=== PATIENT | male | born 1985 ===

== ENCOUNTER 2016-06-16 07:16 | Emergency (ER) | payer OTHER ==
[2016-06-16 07:16] VITALS: BMI 17.9
[2016-06-16 07:22] VITALS: O2SAT 96
--- NOTE | 2016-06-16 08:40 | C.PDOC ---
History Of Present Illness 31 y/o male pmhx seizures of unknown etiology presents to the ED with complains of seizure last night at home. Pt with multiple visits to ED for same, prior dialantin levels low although patient states is compliant with medication. Prior visits also positive for cocaine and marijuana use although patient denies drug use. Denies headache, nausea, vomiting, fever, chills or any other complaints. Time Seen by Provider: 06/16/16 08:14 Chief Complaint (Nursing): Seizure History Per: Patient History/Exam Limitations: no limitations Recent Seizure Activity Began: Hours Ago: Length Of Seizures (Duration): Unknown Severity: Mild Recent travel outside of the [place]: No Past Medical History Reviewed: Historical Data, Nursing Documentation, Vital Signs Vital Signs: Last Vital Signs Temp 98.6 F 06/16/16 10:23 Pulse 90 06/16/16 10:23 Resp 14 06/16/16 10:23 BP 110/59 L 06/16/16 10:23 Pulse Ox 96 06/16/16 10:23 - Medical History PMH: Asthma, Depression, Kidney Stones, Chronic Kidney Disease, Seizures - [facility] Procedures TETANUS TOXOID ADMINIST (11/24/12) Family History: States: Unknown Family Hx - Social History Hx Tobacco Use: Yes Hx Alcohol Use: No Hx Substance Use: No - Immunization History Hx Tetanus Toxoid Vaccination: Yes (11/24/2012) Hx Influenza Vaccination: Yes Hx Pneumococcal Vaccination: No Review Of Systems Constitutional: Negative for: Fever, Chills Gastrointestinal: Negative for: Nausea, Vomiting Neurological: Positive for: Seizures. Negative for: Headache Physical Exam - Physical Exam Appears: Non-toxic, No Acute Distress Skin: Warm, Dry, No Rash, Other (flushed) Head: Atraumatic, Normacephalic Eye(s): bilateral: PERRL, EOMI Tongue: Normal Appearing, No Bite Neck: Normal, Normal ROM, Supple Chest: Symmetrical Cardiovascular: Rhythm Regular, No Murmur Respiratory: Normal Breath Sounds, No Rales, No Rhonchi, No Wheezing Gastrointestinal/Abdominal: Normal Exam, Soft, No Tenderness Extremity: Normal ROM, Other (No signs of trauma) Extremity: Bilateral: Atraumatic Neurological/Psych: Oriented x3, Normal Speech, Normal Cognition, Normal Motor, Normal Sensation ED Course And Treatment - Laboratory Results Result Diagrams: 06/16/16 08:47 06/16/16 08:47 O2 Sat by Pulse Oximetry: 96 (room air) Pulse Ox Interpretation: Normal Medical Decision Making Medical Decision Making: Plan: UA, BGL, IV fluids, labs, dilantin level Disposition Counseled Patient/Family Regarding: Studies Performed, Diagnosis, Need For Followup, Rx Given - Disposition Referrals: [facility] [Outside] Disposition: HOME/ ROUTINE Disposition Time: 11:03 Condition: IMPROVED Additional Instructions: Take your medication as indicated. Each visit to the Emergency Department you have had a low Dilantin level. This means you are not taking your medication. Follow up in the clinic or with your own doctor. Prescriptions: Phenytoin, Extended [Dilantin Kapseals] 300 mg PO DAILY #60 cer Instructions: Recurrent Seizures in Adults (ED) Forms: General Discharge Instructions - POA Present On Arrival: None - Clinical Impression Clinical Impression: Generalized-onset seizures - Scribe Statement The provider has reviewed the documentation as recorded by the Sai Priest Provider Attestation: All medical record entries made by the Sai were at my direction and personally dictated by me. I have reviewed the chart and agree that the record accurately reflects my personal performance of the history, physical exam, medical decision making, and the department course for this patient. I have also personally directed, reviewed, and agree with the discharge instructions and disposition.
[2016-06-16 08:52] LABS: BASO # 0.1 K/uL (0.0-0.2); BASO % 0.6 % (0.0-2.0); EOS # 0.1 K/uL (0.0-0.7); EOS % 0.8 % (0.0-4.0); HEMATOCRIT 47.8 % (35.0-51.0); LYMPH # 3.6 K/uL (1.0-4.3); LYMPH % 28.8 % (20.0-40.0); MEAN CORPUSCULAR HEMOGLOBIN 27.6 pg (27.0-31.0); MEAN CORPUSCULAR HGB CONC 31.7 g/dL (33.0-37.0); MEAN PLATELET VOLUME 8.3 fL (7.2-11.7); MONO # 0.9 K/uL (0.0-0.8); MONO % 7.4 % (0.0-10.0); NRBC % 0.1 % (0.0-2.0); RED CELL DISTRIBUTION WIDTH 13.6 % (11.5-14.5); WHITE BLOOD COUNT 12.6 K/uL (4.8-10.8)
[2016-06-16 08:55] LABS: MEAN CELL VOLUME 87.2 fL (80.0-94.0)
[2016-06-16 09:02] LABS: CHLORIDE 100 mmol/L (98-107); POTASSIUM 3.8 mmol/L (3.6-5.2); SODIUM 138 mmol/L (132-148)
[2016-06-16 09:04] LABS: ALB/GLOB RATIO 1.3 (1.0-2.1); ALKALINE PHOSPHATASE 108 U/L (38-126); AST/SGOT 33 U/L (17-59); BILIRUBIN,TOTAL 0.5 mg/dL (0.2-1.3); CARBON DIOXIDE 14 mmol/L (22-30); GFR AFRICAN-AMERICAN > 60; TOTAL PROTEIN 8.5 g/dL (6.3-8.3)
[2016-06-16 09:05] LABS: ALCOHOL SERUM < 10 mg/dl (0-10); ALT/SGPT 16 U/L (21-72); BLOOD UREA NITROGEN 17 mg/dL (9-20); GLUCOSE,RANDOM 102 mg/dL (75-110)
[2016-06-16 09:07] LABS: RBC URINE 1 /hpf (0-3); URINE BILIRUBIN NEGATIVE (NEGATIVE); URINE BLOOD 1+ (NEGATIVE); URINE COLOR Yellow (YELLOW); URINE GLUCOSE (UA) NORMAL (Normal); URINE KETONE NEGATIVE (NEGATIVE); URINE LEUKOCYTE ESTERASE NEG Leu/uL (Negative); URINE PROTEIN 1+ mg/dL (NEGATIVE); URINE UROBILINOGEN NORMAL mg/dL (0.2-1.0); WBC URINE 1 /hpf (0-5)
[2016-06-16 10:26] VITALS: BP 110/59; PULSE 90; RESP 14; TEMP 98.6
== END 2016-06-16 11:23 | disposition home or self-care (01) ==
LOC: C.ER 07:16
DX: G40.409 Other generalized epilepsy and epileptic syndromes, not intractable, without status epilepticus (principal)

== ENCOUNTER 2016-07-19 04:15 | Emergency (ER) | payer OTHER ==
[2016-07-19 04:15] VITALS: BMI 17.9
[2016-07-19 04:49] VITALS: TEMP 98.2
--- NOTE | 2016-07-19 06:31 | C.PDOC ---
History Of Present Illness 31 yo male w/PMHx of sz ds come in for evaluation of Left sided chest pain developed since last night. Pt reports, pain is reproducible over anterior and posterior chest wall, worse with breathing. Pain is aching, worse with movement. Otherwise, pt denies fever, chills, recent illness, headache, dizziness, denies recent hx of sz activity, complaint with medication, denies SOB, dyspnea, diaphoresis, palpitation, abd. pain, N/V, denies weakness to B/L UEs and LEs. Ambulate to Ed for evaluation, not in any apparent distress. Time Seen by Provider: 07/19/16 04:47 Chief Complaint (Nursing): Chest Pain History Per: Patient Onset/Duration Of Symptoms: Gradual Past Medical History Reviewed: Historical Data, Nursing Documentation, Vital Signs Vital Signs: Last Vital Signs Temp 98.2 F 07/19/16 04:32 Pulse 77 07/19/16 07:08 Resp 17 07/19/16 07:08 BP 118/65 07/19/16 07:08 Pulse Ox 100 07/19/16 07:08 - Medical History PMH: Asthma, Depression, Kidney Stones, Chronic Kidney Disease, Seizures Surgical History: No Surg Hx - [facility] Procedures TETANUS TOXOID ADMINIST (11/24/12) Family History: States: No Known Family Hx - Social History Hx Tobacco Use: Yes Hx Alcohol Use: No Hx Substance Use: No - Immunization History Hx Tetanus Toxoid Vaccination: Yes (11/24/2012) Hx Influenza Vaccination: Yes Hx Pneumococcal Vaccination: No Review Of Systems Except As Marked, All Systems Reviewed And Found Negative. Constitutional: Negative for: Fever, Chills Eyes: Negative for: Vision Change ENT: Negative for: Throat Pain Cardiovascular: Positive for: Chest Pain. Negative for: Palpitations, Edema, Light Headedness Respiratory: Positive for: Pleuritic Pain. Negative for: Cough, Shortness of Breath, SOB with Excertion, Sputum, Wheezing Gastrointestinal: Negative for: Nausea, Vomiting, Abdominal Pain Musculoskeletal: Negative for: Neck Pain, Back Pain Skin: Negative for: Rash, Bruising Neurological: Negative for: Weakness, Numbness, Altered Mental Status, Headache , Dizziness Physical Exam - Physical Exam Appears: Well, Non-toxic, No Acute Distress Skin: Normal Color, Warm, Dry, No Rash Eye(s): bilateral: PERRL Ear(s): Bilateral: Normal Nose: No Discharge Oral Mucosa: Moist, No Drooling Throat: Normal Neck: Trachea Midline, Supple Chest: Symmetrical, No Deformity, Tenderness (reproducible tenderness anterior chest wall overlying 3-5 intercostal spaces and posterior subscapular area. No skin changes.) Cardiovascular: Rhythm Regular Respiratory: No Decreased Breath Sounds, No Accessory Muscle Use, No Rales, No Rhonchi, No Stridor, No Wheezing Gastrointestinal/Abdominal: Soft, No Tenderness, No Distention, No Guarding Back: No CVA Tenderness Extremity: No Pedal Edema, No Deformity Neurological/Psych: Oriented x3, Normal Speech, Normal Motor, Normal Sensation, Normal Reflexes ED Course And Treatment ECG: Interpreted By Me, Viewed By Me ECG Rhythm: Sinus Rhythm ECG Interpretation: Normal Interpretation Of ECG: SR@81/min, NAD, no acute T wave or ST-T changes. O2 Sat by Pulse Oximetry: 97 Pulse Ox Interpretation: Normal - Radiology CXR: Interpreted by Me, Viewed By Me CXR Interpretation: Yes: No Acute Disease Progress Note: Case discussed with ED attending and no further work up recommend. On re-evaluation, pt is afebrile, hemodynamicaly stable. Non- toxic. PulsEOx 97% RA. Neck: Supple, (-) JVD. ENT: no acute findings. Lungs : CTA B?L, BS equal B/L. CVS: (+)S1S2, reg. Abd: benign. Neurologicaly intact. CXR, EKG- normal study. Pt advised to F/U with PMD and Card in 1-2 days for re-eavl. return to ED if any worsening or new changes. Disposition Counseled Patient/Family Regarding: Studies Performed, Diagnosis, Need For Followup - Disposition Referrals: Cody Conde MD [Staff Provider] - Disposition: HOME/ ROUTINE Disposition Time: 06:37 Condition: STABLE Additional Instructions: LIght duty, avoid physical activity for 1 week Take Ibuprofen for pain Follow up with PMD and Cardiology in 1-2 days for re-evaluation. RETURN TO ED IF ANY WORSENING OR NEW CHANGES. Instructions: Chest Pain (ED) - Clinical Impression Clinical Impression: Chest pain
[2016-07-19 07:10] VITALS: BP 118/65; PULSE 77; RESP 17
--- NOTE | 2016-07-19 08:59 | RAD ---
HISTORY: Cough COMPARISON: No prior. TECHNIQUE: Chest PA and lateral FINDINGS: LUNGS: Minimal apical pleural thickening. No focal infiltrate or effusion. PLEURA: No significant pleural effusion identified. No pneumothorax apparent. CARDIOVASCULAR: Normal. OSSEOUS STRUCTURES: No significant abnormalities. VISUALIZED UPPER ABDOMEN: Normal. OTHER FINDINGS: None. IMPRESSION: Minimal apical pleural thickening. No focal infiltrate or effusion.
[2016-07-20 15:14] VITALS: O2SAT 97
--- NOTE | 2016-07-20 18:32 | CARD ---
APPROVED REPORT EKG Measurement Heart [id number] <Conclusion> Normal sinus rhythm Biatrial enlargement Abnormal ECG
== END 2016-07-19 07:10 | disposition home or self-care (01) ==
LOC: C.ER 04:15
DX: R07.89 Other chest pain (principal)

== ENCOUNTER 2016-08-23 10:38 | Emergency (ER) | payer OTHER ==
[2016-08-23 10:45] VITALS: BMI 22.8
[2016-08-23 10:54] VITALS: TEMP 98.2
[2016-08-23 11:10] LABS: BASO # 0.1 K/uL (0.0-0.2); BASO % 0.7 % (0.0-2.0); EOS % 0.2 % (0.0-4.0); HEMOGLOBIN 14.9 g/dL (12.0-18.0); LYMPH # 0.9 K/uL (1.0-4.3); LYMPH % 6.3 % (20.0-40.0); MEAN CELL VOLUME 87.2 fL (80.0-94.0); MEAN CORPUSCULAR HEMOGLOBIN 27.8 pg (27.0-31.0); MEAN CORPUSCULAR HGB CONC 31.9 g/dL (33.0-37.0); MEAN PLATELET VOLUME 8.3 fL (7.2-11.7); MONO # 0.7 K/uL (0.0-0.8); MONO % 4.8 % (0.0-10.0); NEUT # 13.1 K/uL (1.8-7.0); PLATELET COUNT 225 K/uL (130-400); RBC 5.37 Mil/uL (4.40-5.90); RED CELL DISTRIBUTION WIDTH 14.1 % (11.5-14.5); WHITE BLOOD COUNT 14.9 K/uL (4.8-10.8)
[2016-08-23 11:21] LABS: ALBUMIN 4.5 g/dL (3.5-5.0)
[2016-08-23 11:23] LABS: SQUAMOUS EPITHIAL < 1 /hpf (0-5); URINE BACTERIA RARE (<OCC); URINE BILIRUBIN NEGATIVE (NEGATIVE); URINE CLARITY Clear (Clear); URINE COLOR Straw (YELLOW); URINE GLUCOSE (UA) NORMAL (Normal); URINE LEUKOCYTE ESTERASE NEG Leu/uL (Negative); URINE NITRATE NEGATIVE (NEGATIVE); URINE PROTEIN 1+ mg/dL (NEGATIVE); URINE UROBILINOGEN NORMAL mg/dL (0.2-1.0)
[2016-08-23 11:24] LABS: ALB/GLOB RATIO 1.4 (1.0-2.1); AST/SGOT 42 U/L (17-59); BLOOD UREA NITROGEN 16 mg/dL (9-20); GFR AFRICAN-AMERICAN > 60; GFR NON-AFRICAN AMERICAN > 60
[2016-08-23 11:25] LABS: ALT/SGPT 25 U/L (21-72); CALCIUM 9.2 mg/dl (8.6-10.4)
[2016-08-23 11:28] LABS: BENZODIAZEPINES, UR NEGATIVE (NEGATIVE)
[2016-08-23 11:29] LABS: BARBITURATES, UR NEGATIVE (NEGATIVE)
[2016-08-23 11:31] LABS: OPIATES, UR NEGATIVE (NEGATIVE)
[2016-08-23 11:32] LABS: PHENCYCLIDINE, UR NEGATIVE (NEGATIVE)
[2016-08-23 11:52] LABS: URINE BLOOD 3+ (NEGATIVE)
[2016-08-23 12:24] LABS: LYMPHOCYTE 3 % (20-40); MONOCYTE 5 % (0-10); NEUTROPHIL 92 % (50-75); TOTAL CELLS COUNTED 100
[2016-08-23 12:25] LABS: PLATELET ESTIMATE NORMAL (NORMAL)
--- NOTE | 2016-08-23 12:46 | C.PDOC ---
History Of Present Illness 31-year-old male, PMHx includes EtOH Abuse, Asthma, Depression, Kidney Stones, Chronic Kidney Disease, Seizures, is brought to the emergency department by EMS accompanied by police with complaints of seizure. Patient had a witnessed seizure at home by mom. Patient is usually compliant with his Dilantin but did not take it today. Patient brought in handcuffs due to being combative when he was picked up. No bladder/bowel incontinence. No tongue lacerations. Currently states he is thirsty. Denies nausea/vomiting, fevers, headache or chills. Time Seen by Provider: 08/23/16 10:49 Chief Complaint (Nursing): Altered Mental Status History Per: Patient History/Exam Limitations: None Onset/Duration Of Symptoms: Days Current Symptoms Are (Timing): Still Present Past Medical History Reviewed: Historical Data, Nursing Documentation, Vital Signs Vital Signs: Last Vital Signs Temp 98.2 F 08/23/16 10:53 Pulse 77 08/23/16 13:43 Resp 13 08/23/16 13:43 BP 102/56 L 08/23/16 13:43 Pulse Ox 99 08/23/16 14:32 - Medical History PMH: Asthma, Depression, Kidney Stones, Chronic Kidney Disease, Seizures - [facility] Procedures TETANUS TOXOID ADMINIST (11/24/12) Family History: States: No Known Family Hx - Social History Hx Tobacco Use: Yes Hx Alcohol Use: No Hx Substance Use: No - Immunization History Hx Tetanus Toxoid Vaccination: Yes (11/24/2012) Hx Influenza Vaccination: Yes Hx Pneumococcal Vaccination: No Review Of Systems Except As Marked, All Systems Reviewed And Found Negative. Constitutional: Negative for: Fever, Chills Cardiovascular: Negative for: Chest Pain, Palpitations Respiratory: Negative for: Shortness of Breath Gastrointestinal: Negative for: Nausea, Vomiting Musculoskeletal: Negative for: Neck Pain, Back Pain Neurological: Positive for: Seizures. Negative for: Weakness, Numbness, Headache, Dizziness Physical Exam - Physical Exam Appears: Non-toxic, No Acute Distress Skin: Warm, Dry, No Rash Head: Atraumatic, Normacephalic Eye(s): bilateral: Normal Inspection, PERRL, EOMI Nose: Normal Oral Mucosa: Moist Lips: Normal Appearing Neck: Normal ROM Cardiovascular: Rhythm Regular, No Murmur Respiratory: Normal Breath Sounds, No Accessory Muscle Use Gastrointestinal/Abdominal: Soft, No Tenderness Extremity: Normal ROM Neurological/Psych: Oriented x3, Normal Speech ED Course And Treatment - Laboratory Results Result Diagrams: 08/23/16 10:59 08/23/16 10:59 ECG: Interpreted By Me, Viewed By Me ECG Rhythm: Sinus Tachycardia, PVC (frequent) ECG Interpretation: No Acute Changes Rate From EC (bpm) O2 Sat by Pulse Oximetry: 99 (on RA) Disposition Counseled Patient/Family Regarding: Studies Performed, Diagnosis, Need For Followup, Rx Given - Disposition Disposition: HOME/ ROUTINE Disposition Time: 14:29 Condition: STABLE Prescriptions: Phenytoin, Extended [Dilantin Kapseals] 300 mg PO DAILY #90 cer Instructions: Phenytoin (By mouth) Forms: General Discharge Instructions - POA Present On Arrival: None - Clinical Impression Clinical Impression: Seizure - Scribe Statement The provider has reviewed the documentation as recorded by the Scribe (Namita Ontiveros) All medical record entries made by the Scribe were at my direction and personally dictated by me. I have reviewed the chart and agree that the record accurately reflects my personal performance of the history, physical exam, medical decision making, and the department course for this patient. I have also personally directed, reviewed, and agree with the discharge instructions and disposition.
[2016-08-23 13:45] VITALS: BP 102/56; PULSE 77; RESP 13
[2016-08-23 14:29] VITALS: O2SAT 99
--- NOTE | 2016-08-24 13:06 | CARD ---
APPROVED REPORT EKG Measurement Heart [id number] <Conclusion> Sinus rhythm with frequent premature ventricular complexes Biatrial enlargement Abnormal ECG
== END 2016-08-23 14:50 | disposition home or self-care (01) ==
LOC: C.ER 10:38
DX: G40.909 Epilepsy, unspecified, not intractable, without status epilepticus (principal)
CPT/HCPCS: 80053; 80185; 80320; 80324; 80345; 80346; 80349; 80353; 80358; 80361; 81001; 82948; 83992; 85025; 93005; 96365; 96375; 99285; J1165; J2405

== ENCOUNTER 2016-09-27 14:50 | Emergency (ER) | payer OTHER ==
[2016-09-27 14:59] VITALS: BMI 23.0
[2016-09-27] MEDS ORDERED: Phenytoin 100 mg/4 ml Oral Susp UD PO STA (15:02)
--- NOTE | 2016-09-27 15:21 | C.PDOC ---
History Of Present Illness 31 yr old male with history of seizures, brought in via BLS, presents to the ER s/p seizure at home. Patient reports he was in the kitchen prior to the seizure. Patient states a family member called 911. Patient reports of a mild headache and left sided hematoma. Denies fever, chest pain, SOB, cough, URI symptoms, dysuria, weakness or numbness. Time Seen by Provider: 09/27/16 14:55 Chief Complaint (Nursing): Seizure History Per: Patient History/Exam Limitations: no limitations Recent Seizure Activity Began: Just Before Arrival Number Of Seizures: One Length Of Seizures (Duration): Unknown Past Medical History Reviewed: Historical Data, Nursing Documentation, Vital Signs Vital Signs: Last Vital Signs Temp 99.0 F 09/27/16 14:59 Pulse 80 09/27/16 14:59 Resp 18 09/27/16 14:59 BP 104/63 09/27/16 14:59 Pulse Ox 99 09/27/16 16:16 - Medical History PMH: Asthma, Depression, Kidney Stones, Chronic Kidney Disease, Seizures - [facility] Procedures TETANUS TOXOID ADMINIST (11/24/12) Family History: States: No Known Family Hx - Social History Hx Tobacco Use: Yes Hx Alcohol Use: No Hx Substance Use: No - Immunization History Hx Tetanus Toxoid Vaccination: Yes (11/24/2012) Hx Influenza Vaccination: Yes Hx Pneumococcal Vaccination: No Review Of Systems Except As Marked, All Systems Reviewed And Found Negative. Constitutional: Negative for: Fever Eyes: Negative for: Pain ENT: Negative for: Ear Pain, Nose Pain, Throat Pain Cardiovascular: Negative for: Chest Pain, Palpitations Respiratory: Negative for: Cough, Shortness of Breath, SOB with Excertion Gastrointestinal: Negative for: Nausea, Vomiting, Abdominal Pain, Diarrhea Genitourinary: Negative for: Dysuria Musculoskeletal: Negative for: Neck Pain, Shoulder Pain, Arm Pain, Back Pain, Hand Pain, Leg Pain, Foot Pain Neurological: Positive for: Seizures, Headache. Negative for: Weakness, Numbness, Confusion, Altered Mental Status, Dizziness Psych: Negative for: Anxiety, Depression Physical Exam - Physical Exam Appears: Non-toxic, No Acute Distress Skin: Warm, Dry, No Rash, Other ((+) Small hematoma above the left eyebrow. No break in skin.) Head: Atraumatic, Normacephalic Eye(s): bilateral: Normal Inspection, PERRL, EOMI Oral Mucosa: Moist Tongue: Normal Appearing, No Bite Lips: Normal Appearing, No Swelling Neck: Normal, Normal ROM, No Midline Cervical Tenderness, Supple Chest: Symmetrical, No Tenderness Cardiovascular: Rhythm Regular, No Murmur Respiratory: Normal Breath Sounds, No Rales, No Rhonchi, No Wheezing Gastrointestinal/Abdominal: Normal Exam, Soft, No Tenderness, No Guarding, No Rebound Back: Normal Inspection, No Paraspinal Tenderness Extremity: Normal ROM, No Swelling Neurological/Psych: Oriented x3, Normal Speech, Normal Motor Gait: Steady ED Course And Treatment - Laboratory Results Result Diagrams: 09/27/16 15:52 09/27/16 15:52 O2 Sat by Pulse Oximetry: 99 (RA) Pulse Ox Interpretation: Normal - CT Scan/US CT - Head Other Rad Studies (CT/US): Read By Radiologist, Radiology Report Reviewed CT/US Interpretation: ADDENDUM: Please note comparison was made with noncontrast head CT performed 04/28/15. [ Addendum Report Added by DR. Patel, Basia Andrews MD at 09/27/2016 15:47:34 ]. PROCEDURE: CT HEAD WITHOUT CONTRAST. HISTORY: head injury. COMPARISON: None available. TECHNIQUE: Axial computed tomography images were obtained through the head/brain without intravenous contrast. Radiation dose: Total exam DLP = 934.57 mGy-cm. This CT exam was performed using one or more of the following dose reduction techniques: Automated exposure control, adjustment of the mA and/or kV according to patient size, and/or use of iterative reconstruction technique. FINDINGS: HEMORRHAGE: No intracranial hemorrhage. BRAIN: No mass effect or edema. No atrophy or chronic microvascular ischemic changes. Please note that MRI with diffusion imaging is more sensitive in the detection of acute ischemic event. VENTRICLES: No hydrocephalus. CALVARIUM: Unremarkable. PARANASAL SINUSES: Unremarkable as visualized. No significant inflammatory changes. MASTOID AIR CELLS: Unremarkable as visualized. No inflammatory changes. OTHER FINDINGS: None. IMPRESSION: No acute intracranial pathology identified. Medical Decision Making Medical Decision Making: PLAN: Neurologically intact after breakthrough seizure. no complaint except for mild headache. * CT - Head to r/o bleed vs fracture from head trauma during seizure. * CBC * CMP * Urinalysis * Tylenol PO 3:49PM CT negative 4:16PM Labs grossly normal except dilantin<10. Breakthrough seizure likely due to medication non-compliance. Cerebryx ordered. Patient reports that he has dilantin as home and he was instructed on importance of taking as directed and following up with neurology. Disposition - Disposition Disposition: HOME/ ROUTINE Disposition Time: 16:48 Condition: GOOD Additional Instructions: Take dilantin as prescribed. Return to ED if condition worsens. Follow-up with your neurologist within 1 week. Follow-up with PMD within 2 days. Instructions: Recurrent Seizures in Adults (ED) Forms: [employer] (Hebrew) - Clinical Impression Clinical Impression: Seizure - Scribe Statement The provider has reviewed the documentation as recorded by the Keeibe Leslie Cruz Provider Attestation: All medical record entries made by the Keeibalthea were at my direction and personally dictated by me. I have reviewed the chart and agree that the record accurately reflects my personal performance of the history, physical exam, medical decision making, and the department course for this patient. I have also personally directed, reviewed, and agree with the discharge instructions and disposition.
--- NOTE | 2016-09-27 15:47 | CT ---
PROCEDURE: CT HEAD WITHOUT CONTRAST. HISTORY: head injury COMPARISON: None available. TECHNIQUE: Axial computed tomography images were obtained through the head/brain without intravenous contrast. Radiation dose: Total exam DLP = 934.57 mGy-cm. This CT exam was performed using one or more of the following dose reduction techniques: Automated exposure control, adjustment of the mA and/or kV according to patient size, and/or use of iterative reconstruction technique. FINDINGS: HEMORRHAGE: No intracranial hemorrhage. BRAIN: No mass effect or edema. No atrophy or chronic microvascular ischemic changes. Please note that MRI with diffusion imaging is more sensitive in the detection of acute ischemic event. VENTRICLES: No hydrocephalus. CALVARIUM: Unremarkable. PARANASAL SINUSES: Unremarkable as visualized. No significant inflammatory changes. MASTOID AIR CELLS: Unremarkable as visualized. No inflammatory changes. OTHER FINDINGS: None. IMPRESSION: No acute intracranial pathology identified.
[2016-09-27 15:56] LABS: BASO % 0.3 % (0.0-2.0); EOS % 0.3 % (0.0-4.0); HEMATOCRIT 47.1 % (35.0-51.0); LYMPH # 1.1 K/uL (1.0-4.3); LYMPH % 14.6 % (20.0-40.0); MEAN CELL VOLUME 86.9 fL (80.0-94.0); MEAN CORPUSCULAR HEMOGLOBIN 27.8 pg (27.0-31.0); MEAN CORPUSCULAR HGB CONC 32.1 g/dL (33.0-37.0); MEAN PLATELET VOLUME 7.7 fL (7.2-11.7); MONO # 0.4 K/uL (0.0-0.8); MONO % 5.5 % (0.0-10.0); RED CELL DISTRIBUTION WIDTH 14.2 % (11.5-14.5); WHITE BLOOD COUNT 7.7 K/uL (4.8-10.8)
[2016-09-27 16:03] LABS: CHLORIDE 103 mmol/L (98-107)
[2016-09-27 16:04] LABS: POTASSIUM 4.5 mmol/L (3.6-5.2); SODIUM 142 mmol/L (132-148)
[2016-09-27 16:06] LABS: ALB/GLOB RATIO 1.4 (1.0-2.1); ALKALINE PHOSPHATASE 86 U/L (38-126); AST/SGOT 21 U/L (17-59); BILIRUBIN,TOTAL 0.4 mg/dL (0.2-1.3); BLOOD UREA NITROGEN 18 mg/dL (9-20); CARBON DIOXIDE 24 mmol/L (22-30); GFR AFRICAN-AMERICAN > 60; TOTAL PROTEIN 7.4 g/dL (6.3-8.3)
[2016-09-27 16:07] LABS: ALT/SGPT 32 U/L (21-72); CALCIUM 9.5 mg/dl (8.6-10.4); GLUCOSE,RANDOM 71 mg/dL (75-110)
[2016-09-27] MEDS ORDERED: Fosphenytoin 1,000 MG in Sodium Chloride 0.9% 50 ML IV STA (16:14)
[2016-09-27 17:32] VITALS: BP 113/63; PULSE 83; RESP 20; TEMP 98.7; O2SAT 98
== END 2016-09-27 17:48 | disposition home or self-care (01) ==
LOC: C.ER 14:50
DX: G40.909 Epilepsy, unspecified, not intractable, without status epilepticus (principal)
CPT/HCPCS: 70450; 80053; 80185; 82948; 85025; 96365; 99285; Q2009

== ENCOUNTER 2016-11-27 23:40 | Emergency (ER) | payer MEDICAID, OTHER ==
[2016-11-27 23:41] VITALS: BMI 23.0
[2016-11-28] MEDS ORDERED: Sodium Chloride 0.9% 1,000 ML IV ONE ×4 (00:07→08:57)
[2016-11-28 00:15] LABS: BASO # 0.1 K/uL (0.0-0.2); BASO % 0.3 % (0.0-2.0); EOS # 0.2 K/uL (0.0-0.7); HEMATOCRIT 49.9 % (35.0-51.0); LYMPH % 20.4 % (20.0-40.0); MEAN CELL VOLUME 91.1 fL (80.0-94.0); MEAN CORPUSCULAR HEMOGLOBIN 29.1 pg (27.0-31.0); MEAN PLATELET VOLUME 8.1 fL (7.2-11.7); MONO # 1.7 K/uL (0.0-0.8); MONO % 8.6 % (0.0-10.0); RED CELL DISTRIBUTION WIDTH 14.6 % (11.5-14.5); WHITE BLOOD COUNT 19.6 K/uL (4.8-10.8)
[2016-11-28 00:28] LABS: CHLORIDE 106 mmol/L (98-107); POTASSIUM 3.8 mmol/L (3.6-5.2); SODIUM 149 mmol/L (132-148)
[2016-11-28 00:30] LABS: BILIRUBIN,TOTAL 0.4 mg/dL (0.2-1.3); GFR AFRICAN-AMERICAN > 60
[2016-11-28 00:31] LABS: ALB/GLOB RATIO 1.4 (1.0-2.1); ALKALINE PHOSPHATASE 75 U/L (38-126); ALT/SGPT 22 U/L (21-72); BLOOD UREA NITROGEN 18 mg/dL (9-20); CALCIUM 10.3 mg/dl (8.6-10.4); GLUCOSE,RANDOM 113 mg/dL (75-110); MAGNESIUM 2.6 mg/dL (1.6-2.3)
[2016-11-28 00:53] LABS: CARBON DIOXIDE 9 mmol/L (22-30)
--- NOTE | 2016-11-28 00:59 | C.PDOC ---
Time Seen by Provider: 11/28/16 00:05 Chief Complaint (Nursing): Seizure History Per: Patient, EMS History/Exam Limitations: clinical condition Recent Seizure Activity Began: Just Before Arrival Length Of Seizures (Duration): Unknown Quality Of Seizure: Generalized Post-ictal Period: Yes Severity: Moderate Additional History Per: Prior Records Past Medical History Reviewed: Historical Data, Nursing Documentation, Vital Signs Vital Signs: Last Vital Signs Temp 97.2 F L 11/27/16 23:50 Pulse 93 H 11/28/16 00:36 Resp 16 11/28/16 00:36 BP 144/50 L 11/28/16 00:36 Pulse Ox 100 11/28/16 00:59 - Medical History PMH: Asthma, Depression, Kidney Stones, Chronic Kidney Disease, Seizures - [facility] Procedures TETANUS TOXOID ADMINIST (11/24/12) Family History: States: Unknown Family Hx - Social History Hx Tobacco Use: Yes Hx Alcohol Use: No Hx Substance Use: No - Immunization History Hx Tetanus Toxoid Vaccination: Yes (11/24/2012) Hx Influenza Vaccination: Yes Hx Pneumococcal Vaccination: No Review Of Systems Review Of Systems: ROS cannot be obtained secondary to pt's inabilty to answer questions. Physical Exam - Physical Exam Appears: Combative, Agitated, Confused, Other (Post-ictal. Vomiting) Skin: Normal Color, Warm, Dry Head: Atraumatic, Normacephalic Eye(s): bilateral: PERRL Neck: Normal ROM, No Step Off Deformity, Supple Cardiovascular: Rhythm Regular Respiratory: Normal Breath Sounds, No Accessory Muscle Use Gastrointestinal/Abdominal: Soft Extremity: Normal ROM, No Deformity Neurological/Psych: Inappropriate Response To Command, Other (Moving all extremities) ED Course And Treatment - Laboratory Results Result Diagrams: 11/28/16 00:12 11/28/16 00:12 ECG: Interpreted By Me, Viewed By Me ECG Rhythm: Sinus Rhythm, Nonspecific Changes Rate From EC O2 Sat by Pulse Oximetry: 100 Pulse Ox Interpretation: Normal Disposition - Disposition Disposition Time: 01:00 Condition: GUARDED - Clinical Impression Clinical Impression: Seizure Physician Patient Turnover Patient Signed Over To: Bobbi Wells Handoff Comments: to f/up labs and reassess/observe and dispo pt.
[2016-11-28 01:11] LABS: AST/SGOT 42 U/L (17-59)
[2016-11-28] MEDS ORDERED: Phenytoin 500 MG in Sodium Chloride 0.9% 100 ML IVPB STA ×2 (01:14→02:47)
[2016-11-28 01:18] LABS: ALCOHOL SERUM < 10 mg/dl (0-10)
[2016-11-28] MEDS ORDERED: Phenytoin 250 mg/5 ml Inj IVP ONE (02:25)
[2016-11-28 07:56] LABS: BASO % 0.1 % (0.0-2.0); HEMATOCRIT 44.1 % (35.0-51.0); LYMPH # 1.1 K/uL (1.0-4.3); LYMPH % 4.8 % (20.0-40.0); MEAN CORPUSCULAR HEMOGLOBIN 28.6 pg (27.0-31.0); MEAN CORPUSCULAR HGB CONC 32.4 g/dL (33.0-37.0); MEAN PLATELET VOLUME 7.8 fL (7.2-11.7); MONO # 1.8 K/uL (0.0-0.8); MONO % 7.6 % (0.0-10.0); PLATELET COUNT 213 K/uL (130-400); RED CELL DISTRIBUTION WIDTH 14.6 % (11.5-14.5); WHITE BLOOD COUNT 23.1 K/uL (4.8-10.8)
[2016-11-28 08:01] LABS: MEAN CELL VOLUME 88.4 fL (80.0-94.0)
[2016-11-28] MEDS ORDERED: Sodium Chloride 0.9% 1,000 ML ONE (08:16)
[2016-11-28 08:18] LABS: NEUTROPHIL 90 % (50-75); TOTAL CELLS COUNTED 100
[2016-11-28 08:19] LABS: CHLORIDE 110 mmol/L (98-107); POTASSIUM 4.4 mmol/L (3.6-5.2); SODIUM 137 mmol/L (132-148)
[2016-11-28 08:22] LABS: BLOOD UREA NITROGEN 21 mg/dL (9-20); CARBON DIOXIDE 16 mmol/L (22-30); GFR AFRICAN-AMERICAN > 60
[2016-11-28 08:23] LABS: CALCIUM 7.8 mg/dl (8.6-10.4); GLUCOSE,RANDOM 66 mg/dL (75-110)
[2016-11-28 12:18] VITALS: RESP 18; TEMP 98.1
[2016-11-28 13:59] VITALS: BP 108/60; PULSE 84; O2SAT 98
--- NOTE | 2016-11-30 12:59 | CARD ---
APPROVED REPORT EKG Measurement Heart [id number] <Conclusion> Normal sinus rhythm Biatrial enlargement Lateral infarct, age undetermined Abnormal ECG
== END 2016-11-28 14:00 | disposition home or self-care (01) ==
LOC: C.ER 23:40
DX: G40.909 Epilepsy, unspecified, not intractable, without status epilepticus (principal)
CPT/HCPCS: 80048; 80053; 80185; 82948; 83735; 85025; 93005; 96361; 96365; 96366; 96375; 96376; 99285; G0480; J1165; J2060; J2405; J7040

== ENCOUNTER 2017-04-26 08:19 | Emergency (ER) | payer OTHER ==
[2017-04-26 08:20] VITALS: BMI 18.5
[2017-04-26 08:29] VITALS: TEMP 98.2; O2SAT 98
[2017-04-26] MEDS ORDERED: Fosphenytoin 1,000 MG in Sodium Chloride 0.9% 50 ML IV STA (08:34)
[2017-04-26 08:49] LABS: BASO % 0.5 % (0.0-2.0); EOS # 0.1 K/uL (0.0-0.7); EOS % 1.3 % (0.0-4.0); HEMOGLOBIN 15.2 g/dL (12.0-18.0); LYMPH # 2.6 K/uL (1.0-4.3); LYMPH % 31.6 % (20.0-40.0); MEAN CELL VOLUME 87.6 fL (80.0-94.0); MEAN CORPUSCULAR HEMOGLOBIN 29.2 pg (27.0-31.0); MEAN CORPUSCULAR HGB CONC 33.3 g/dL (33.0-37.0); MEAN PLATELET VOLUME 7.6 fL (7.2-11.7); MONO # 0.7 K/uL (0.0-0.8); MONO % 7.9 % (0.0-10.0); NEUT # 4.9 K/uL (1.8-7.0); NEUT % 58.7 % (50.0-75.0); NRBC % 0.1 % (0.0-2.0); RBC 5.21 Mil/uL (4.40-5.90); RED CELL DISTRIBUTION WIDTH 13.8 % (11.5-14.5); WHITE BLOOD COUNT 8.3 K/uL (4.8-10.8)
[2017-04-26 09:00] LABS: ALB/GLOB RATIO 1.2 (1.0-2.1); ALBUMIN 4.1 g/dL (3.5-5.0); ALT/SGPT 27 U/L (21-72); AST/SGOT 36 U/L (17-59); BLOOD UREA NITROGEN 16 mg/dL (9-20); CALCIUM 8.9 mg/dl (8.6-10.4); GFR AFRICAN-AMERICAN > 60; GFR NON-AFRICAN AMERICAN > 60
--- NOTE | 2017-04-26 09:23 | C.PDOC ---
History Of Present Illness 32 y/o male brought in by ambulance for evaluation following seizure at home. Denies any head trauma, tongue biting, incontinence, or other injury. As per family, seizure lasted 3 mins. Patient with pmhx of seizure disorder, and multiple prior visits to this ED for the same. Noncompliant with his regimen of Dilantin 300mg BID. Patient states he ran out 1 month ago and has been lost to follow up with his neurologist. Time Seen by Provider: 04/26/17 08:28 Chief Complaint (Nursing): Seizure History Per: Patient History/Exam Limitations: no limitations Recent Seizure Activity Began: Just Before Arrival Length Of Seizures (Duration): Minutes Precipitating Factor(s): Missed Dose Of Anti-seizure Medication Post-ictal Period: Yes Additional History Per: EMS Past Medical History Reviewed: Historical Data, Nursing Documentation, Vital Signs Vital Signs: Last Vital Signs Temp 98.2 F 04/26/17 08:23 Pulse 86 04/26/17 09:22 Resp 13 04/26/17 09:22 BP 108/66 04/26/17 09:22 Pulse Ox 98 04/26/17 09:23 - Medical History PMH: Asthma, Depression, Kidney Stones, Chronic Kidney Disease, Seizures Surgical History: No Surg Hx - [facility] Procedures TETANUS TOXOID ADMINIST (11/24/12) Family History: States: Unknown Family Hx - Social History Hx Tobacco Use: Yes Hx Alcohol Use: No Hx Substance Use: No - Immunization History Hx Tetanus Toxoid Vaccination: Yes (11/24/2012) Hx Influenza Vaccination: Yes Hx Pneumococcal Vaccination: No Review Of Systems Except As Marked, All Systems Reviewed And Found Negative. Constitutional: Negative for: Fever Gastrointestinal: Negative for: Nausea, Vomiting Musculoskeletal: Negative for: Neck Pain, Back Pain Neurological: Positive for: Seizures. Negative for: Weakness, Numbness (and tingling), Other (head injury) Physical Exam - Physical Exam Appears: Non-toxic, No Acute Distress Skin: Normal Color, Warm, Dry Head: Atraumatic, Normacephalic Eye(s): bilateral: Normal Inspection, PERRL, EOMI Nose: Normal Oral Mucosa: Moist Neck: Normal ROM, No Midline Cervical Tenderness, Supple Chest: Symmetrical, No Tenderness Cardiovascular: Rhythm Regular, No Murmur Respiratory: Normal Breath Sounds, No Accessory Muscle Use Gastrointestinal/Abdominal: Soft, No Tenderness, No Distention Back: Normal Inspection, No CVA Tenderness, No Vertebral Tenderness Extremity: Bilateral: Atraumatic, Normal Color And Temperature, Normal ROM Neurological/Psych: Oriented x3, Normal Speech, Normal Cranial Nerves, Normal Motor, Normal Sensation, No Other (focal deficits) ED Course And Treatment - Laboratory Results Result Diagrams: 04/26/17 08:38 04/26/17 08:38 Lab Interpretation: Normal (dilantin level < 3) O2 Sat by Pulse Oximetry: 98 Pulse Ox Interpretation: Normal Progress Note: cerebyx 1g IV Reevaluation Time: 09:21 Reassessment Condition: Improved Medical Decision Making Medical Decision Making: Impression: typical seizure, no med @ home. frequent szr's due to med non-compliance but pt claims well tolerated but lost to f/u and unaware how to get refills. Time: 8:31 Initial Plan: --Urine drug screen --Dilantin level --CMP --CBC --Urinalysis --Accucheck --Cerebyx [address] [place] [address] Wynne- Neurology Manager [employer] is Epileptologist- will refer for f/u through our Clinic system. Disposition Doctor Will See Patient In The: Office Counseled Patient/Family Regarding: Studies Performed, Diagnosis, Need For Followup, Rx Given - Disposition Referrals: [facility] [Outside] [facility] [Outside] Shameka Wynne MD [Staff Provider] - Disposition: HOME/ ROUTINE Disposition Time: 09:22 Condition: GOOD Additional Instructions: sigue Phenytoin/dilantin 300 mg dos veces al michelle Sigue en la [facility]) para rellenar rubin recetas de Dilantin NUNCA debe acabar rubin medicamenentos sigue con Dra Wynne- Neurologo que especializa en los convulciones. Prescriptions: Phenytoin Sodium Extended [Phenytek] 300 mg PO BID #60 cer Instructions: Epilepsy in Adults Forms: [facility] (Costa Rican) Print Language: ALBANIAN - Clinical Impression Clinical Impression: Breakthrough seizure - Scribe Statement The provider has reviewed the documentation as recorded by the Scribe Perla Huang Provider Attestation: All medical record entries made by the Scribe were at my direction and personally dictated by me. I have reviewed the chart and agree that the record accurately reflects my personal performance of the history, physical exam, medical decision making, and the department course for this patient. I have also personally directed, reviewed, and agree with the discharge instructions and disposition.
[2017-04-26 09:24] VITALS: BP 108/66; PULSE 86; RESP 13
== END 2017-04-26 09:46 | disposition home or self-care (01) ==
LOC: C.ER 08:19
DX: G40.909 Epilepsy, unspecified, not intractable, without status epilepticus (principal); Z91.14 Patient's other noncompliance with medication regimen
CPT/HCPCS: 80053; 80185; 82948; 85025; 96365; 99285; Q2009

== ENCOUNTER 2017-06-01 09:23 | Emergency (ER) | payer OTHER ==
[2017-06-01 09:24] VITALS: BMI 18.5
[2017-06-01 09:34] VITALS: O2SAT 100
[2017-06-01] MEDS ORDERED: Lidocaine 4% 50 mL Topical Sol (OR USE) TOP ONE (10:49)
[2017-06-01] MEDS ORDERED: Lidocaine 2% Inj (20ml) INFIL STA (11:17)
[2017-06-01] MEDS ORDERED: Tmp-Smz 800 mg-160 mg DS Tab PO SCH (12:00)
--- NOTE | 2017-06-01 12:03 | C.PDOC ---
History Of Present Illness 32 y/o male presents to the ED complaining of a right axillary abscess for 5 days. Patient states he had a similar abscess in the area several months ago which opened and drained by itself. Denies any injury or trauma to the area. No fever or chills. Time Seen by Provider: 06/01/17 10:26 Chief Complaint (Nursing): Abnormal Skin Integrity History Per: Patient History/Exam Limitations: no limitations Onset/Duration Of Symptoms: Days Current Symptoms Are (Timing): Still Present Past Medical History Reviewed: Historical Data, Nursing Documentation, Vital Signs Vital Signs: Last Vital Signs Temp 98.1 F 06/01/17 12:21 Pulse 82 06/01/17 12:21 Resp 18 06/01/17 12:21 BP 116/68 06/01/17 12:21 Pulse Ox 100 06/01/17 14:30 - Medical History PMH: Asthma, Depression, Kidney Stones, Chronic Kidney Disease, Seizures Surgical History: No Surg Hx - [facility] Procedures TETANUS TOXOID ADMINIST (11/24/12) Family History: States: Unknown Family Hx - Social History Hx Tobacco Use: Yes Hx Alcohol Use: No Hx Substance Use: No - Immunization History Hx Tetanus Toxoid Vaccination: Yes (11/24/2012) Hx Influenza Vaccination: Yes Hx Pneumococcal Vaccination: No Review Of Systems Except As Marked, All Systems Reviewed And Found Negative. Constitutional: Negative for: Fever, Chills Skin: Positive for: Other (abscess to right axilla). Negative for: Rash Physical Exam - Physical Exam Appears: Non-toxic, No Acute Distress Skin: Warm, Dry, No Rash Extremity: Normal ROM, Capillary Refill (< 2 sec), Other (5 cm abscess in the right axilla, fluctuant centrally. No drainage noted. Tender to palpation) Pulses: Left Radial: Normal, Right Radial: Normal Neurological/Psych: Oriented x3 ED Course And Treatment O2 Sat by Pulse Oximetry: 100 (RA) Pulse Ox Interpretation: Normal - Incision & Drainage Of Abscess Anesthesia: Lidocaine 2% Prep Used: Sterile Water Procedure: Incised W/Scalpel Blade#: (11), Drained Pus, Irrigated Cavity W/ Saline, Probed To Break Up Loculations, Packed W/Gauze, Cultures Obtained And Sent To Lab Medical Decision Making Medical Decision Making: Impression: Abscess, right axilla Time: 11:17 Plan: * Lidocaine 4% applied topically * Injected with 2% lidocaine * Will perform I&D of abscess Wound culture sent. Patient given initial doses of Keflex and Bactrim in the ED. Advised to follow up for wound check in 2 days Disposition - Disposition Disposition: HOME/ ROUTINE Disposition Time: 12:01 Condition: GOOD Additional Instructions: Follow up with your PMD within 1-2 days. Return to ED if feel worse. Return to ED in 2 days for re-evaluation and dressing change. Prescriptions: Sulfamethoxazole/Trimethoprim [Bactrim DS 800 mg-160 mg] 1 tab PO BID #14 tab Cephalexin [cephalexin] 500 mg PO Q6 #28 cap Instructions: Abscess Incision and Drainage (DC) Forms: [facility] (Romanian) - Clinical Impression Clinical Impression: Abscess - PA / REGULATORY AFFAIRS SPEC / Resident Statement MD/DO has reviewed & agrees with the documentation as recorded. - Scribe Statement The provider has reviewed the documentation as recorded by the Scribe (Perla Huang) All medical record entries made by the Scribe were at my direction and personally dictated by me. I have reviewed the chart and agree that the record accurately reflects my personal performance of the history, physical exam, medical decision making, and the department course for this patient. I have also personally directed, reviewed, and agree with the discharge instructions and disposition.
[2017-06-01] MEDS ORDERED: Tmp-Smz 800 mg-160 mg DS Tab ONE (12:20)
[2017-06-01 12:24] VITALS: BP 116/68; PULSE 82; RESP 18; TEMP 98.1
== END 2017-06-01 12:23 | disposition home or self-care (01) ==
LOC: C.ER 09:23
DX: L02.411 Cutaneous abscess of right axilla (principal); Z72.0 Tobacco use

== ENCOUNTER 2017-06-03 10:56 | Emergency (ER) | payer OTHER ==
[2017-06-03 10:56] VITALS: BMI 18.5
[2017-06-03 10:59] VITALS: BP 108/70; PULSE 120; RESP 20; TEMP 97.7; O2SAT 100
--- NOTE | 2017-06-03 11:37 | C.PDOC ---
History Of Present Illness 32 y/o male presents to the ER for wound check to the right axilla. Patient was seen in [facility] ER on 06/01/17 for an abscess to the right axilla . He had an I&D and packing was placed. Patient reports that he has come for packing removal today. He notes that the areas has improved. Patient denies having fever, vomiting, and other complaints at this time. Time Seen by Provider: 06/03/17 11:16 Chief Complaint (Nursing): Wound Check History Per: Patient History/Exam Limitations: no limitations Past Medical History Reviewed: Historical Data, Nursing Documentation, Vital Signs Vital Signs: Last Vital Signs Temp 97.7 F 06/03/17 10:57 Pulse 120 H 06/03/17 10:57 Resp 20 06/03/17 10:57 BP 108/70 06/03/17 10:57 Pulse Ox 100 06/03/17 11:58 - Medical History PMH: Asthma, Depression, Kidney Stones, Chronic Kidney Disease, Seizures Surgical History: No Surg Hx - [facility] Procedures TETANUS TOXOID ADMINIST (11/24/12) Family History: States: No Known Family Hx - Social History Hx Tobacco Use: Yes Hx Alcohol Use: No Hx Substance Use: No - Immunization History Hx Tetanus Toxoid Vaccination: Yes (11/24/2012) Hx Influenza Vaccination: Yes Hx Pneumococcal Vaccination: No Review Of Systems Except As Marked, All Systems Reviewed And Found Negative. Constitutional: Negative for: Fever, Chills Gastrointestinal: Negative for: Vomiting Physical Exam - Physical Exam Appears: Non-toxic, No Acute Distress Skin: Normal Color, Warm, Other (healing abscess to the right axilla with packing in place) Head: Atraumatic, Normacephalic Eye(s): bilateral: Normal Inspection Extremity: Normal ROM (right arm) Neurological/Psych: Oriented x3, Normal Speech ED Course And Treatment O2 Sat by Pulse Oximetry: 100 (RA) Pulse Ox Interpretation: Normal Medical Decision Making Medical Decision Making: Old records of the patient's I&D in the ER on 06/01/17 were reviewed. The packing was removed without difficulty and sterile dressing was applied by me. Patient has been instructed to continue taking abx until completed. Disposition - Disposition Referrals: [facility] [Outside] Disposition: HOME/ ROUTINE Disposition Time: 11:35 Condition: GOOD Additional Instructions: Continue taking antibiotics until completed. Follow up with the medical doctor within 1-2 days. Return if worsened. Instructions: Skin Abscess Forms: [facility] (Persian), Work Excuse - Clinical Impression Clinical Impression: Wound check, abscess, Abscess packing removal
== END 2017-06-03 11:46 | disposition home or self-care (01) ==
LOC: C.ER 10:56
DX: Z51.89 Encounter for other specified aftercare (principal); Z48.01 Encounter for change or removal of surgical wound dressing

== ENCOUNTER 2017-10-04 14:01 | Emergency (ER) | payer MEDICAID, OTHER ==
[2017-10-04 14:02] VITALS: BMI 18.5
[2017-10-04 14:11] VITALS: BP 109/65; PULSE 81; RESP 16; TEMP 98.3; O2SAT 98
[2017-10-04] MEDS ORDERED: Fosphenytoin 1,000 MG in Sodium Chloride 0.9% 50 ML IV STA (14:32)
[2017-10-04] MEDS ORDERED: Fosphenytoin 1,000 MG in Sodium Chloride 0.9% 50 ML IV ONE (15:00)
[2017-10-04 15:01] LABS: BASO # 0.1 K/uL (0.0-0.2); BASO % 0.7 % (0.0-2.0); EOS # 0.1 K/uL (0.0-0.7); EOS % 1.7 % (0.0-4.0); HEMOGLOBIN 14.4 g/dL (12.0-18.0); LYMPH # 1.5 K/uL (1.0-4.3); LYMPH % 22.4 % (20.0-40.0); MEAN CELL VOLUME 87.4 fL (80.0-94.0); MEAN CORPUSCULAR HEMOGLOBIN 28.9 pg (27.0-31.0); MEAN CORPUSCULAR HGB CONC 33.1 g/dL (33.0-37.0); MEAN PLATELET VOLUME 7.3 fL (7.2-11.7); MONO # 0.5 K/uL (0.0-0.8); MONO % 7.5 % (0.0-10.0); NEUT # 4.6 K/uL (1.8-7.0); NEUT % 67.7 % (50.0-75.0); NRBC % 0.1 % (0.0-2.0); RBC 4.98 Mil/uL (4.40-5.90); WHITE BLOOD COUNT 6.8 K/uL (4.8-10.8)
[2017-10-04 15:14] LABS: ALB/GLOB RATIO 1.5 (1.0-2.1); ALBUMIN 4.4 g/dL (3.5-5.0); ALT/SGPT 25 U/L (21-72); AST/SGOT 27 U/L (17-59); BLOOD UREA NITROGEN 14 mg/dL (9-20); CALCIUM 8.7 mg/dl (8.6-10.4); GFR NON-AFRICAN AMERICAN > 60
--- NOTE | 2017-10-04 16:21 | C.PDOC ---
History Of Present Illness 32-year-old male, presents to the emergency department s/p witnessed seizure at work. Pt states he is non-compliant with his medication. Denies nausea/vomiting , fever, chest pain, incontinence, or any other associated symptoms. No other complaints at this time. Time Seen by Provider: 10/04/17 14:23 Chief Complaint (Nursing): Seizure History Per: Patient History/Exam Limitations: no limitations Recent Seizure Activity Began: Just Before Arrival Past Medical History Reviewed: Historical Data, Nursing Documentation, Vital Signs Vital Signs: Last Vital Signs Temp 98.3 F 10/04/17 14:10 Pulse 81 10/04/17 14:10 Resp 16 10/04/17 14:10 BP 109/65 10/04/17 14:10 Pulse Ox 98 10/04/17 16:24 - Medical History PMH: Asthma, Depression, Kidney Stones, Chronic Kidney Disease, Seizures - [facility] Procedures TETANUS TOXOID ADMINIST (11/24/12) Family History: States: No Known Family Hx - Social History Hx Tobacco Use: Yes Hx Alcohol Use: No Hx Substance Use: No - Immunization History Hx Tetanus Toxoid Vaccination: Yes (11/24/2012) Hx Influenza Vaccination: Yes Hx Pneumococcal Vaccination: No Review Of Systems Except As Marked, All Systems Reviewed And Found Negative. Constitutional: Negative for: Fever, Chills Cardiovascular: Negative for: Chest Pain, Palpitations Respiratory: Negative for: Shortness of Breath Gastrointestinal: Negative for: Nausea, Vomiting Musculoskeletal: Negative for: Neck Pain, Back Pain Neurological: Positive for: Seizures. Negative for: Weakness, Numbness, Confusion, Headache, Dizziness Physical Exam - Physical Exam Appears: Well, Non-toxic, No Acute Distress Skin: Normal Color, Warm, Dry, No Rash Head: Atraumatic, Normacephalic Eye(s): bilateral: Normal Inspection, PERRL, EOMI Nose: Normal Oral Mucosa: Moist Lips: Normal Appearing Neck: Normal ROM Cardiovascular: Rhythm Regular, No Murmur Respiratory: Normal Breath Sounds, No Accessory Muscle Use Gastrointestinal/Abdominal: Soft, No Tenderness Extremity: Normal ROM, No Deformity Neurological/Psych: Oriented x3, Normal Speech ED Course And Treatment - Laboratory Results Result Diagrams: 10/04/17 14:53 10/04/17 14:53 O2 Sat by Pulse Oximetry: 98 (RA) Pulse Ox Interpretation: Normal Medical Decision Making Medical Decision Making: Plan: * Bloodwork * Cerebyx * Reassess and Disposition Disposition - Disposition Referrals: [facility] [Outside] Disposition: HOME/ ROUTINE Disposition Time: 16:22 Condition: FAIR Additional Instructions: Follow up with the medical doctor within 1-2 days. Return if worsened. Prescriptions: Phenytoin Sodium Extended 300 mg PO TID #90 cer Instructions: Seizures, Adult (DC) Forms: Work Excuse - POA Present On Arrival: None - Clinical Impression Clinical Impression: Seizure - Scribe Statement The provider has reviewed the documentation as recorded by the Scribe (Namita Thayer) All medical record entries made by the Scribe were at my direction and personally dictated by me. I have reviewed the chart and agree that the record accurately reflects my personal performance of the history, physical exam, medical decision making, and the department course for this patient. I have also personally directed, reviewed, and agree with the discharge instructions and disposition.
== END 2017-10-04 16:28 | disposition home or self-care (01) ==
LOC: C.ER 14:01
DX: G40.909 Epilepsy, unspecified, not intractable, without status epilepticus (principal); Z91.14 Patient's other noncompliance with medication regimen
CPT/HCPCS: 80053; 80185; 82948; 85025; 96365; 99285; Q2009

== ENCOUNTER 2017-11-20 20:47 | Emergency (ER) | payer OTHER ==
[2017-11-20 21:02] VITALS: BMI 22.7
[2017-11-20 21:05] VITALS: O2SAT 98
[2017-11-20] MEDS ORDERED: Phenytoin 500 MG in Sodium Chloride 0.9% 100 ML IVPB STA (21:26)
--- NOTE | 2017-11-20 21:28 | C.PDOC ---
History Of Present Illness 32 year old male patient with hx of seizure presents to the ER with c/o light headedness. Patient reports he had a seizure today and does not know how long it lasted. Patient reports there was no urinary incontinence but he bit his tongue during the episode. Patient also reports he is taking 100 mg of Dilantin x3/day, but had a change of medication prior for a short period of time. He notes the seizure started when he went back to his original medication and is unsure if the change of medication had caused the seizure. Patient denies headache, nausea, vomiting, dizziness, confusion, neck pain, vision changes, fatigue and muscle spasm. Time Seen by Provider: 11/20/17 21:11 Chief Complaint (Nursing): Seizure History Per: Patient Recent Seizure Activity Began: Just Before Arrival Number Of Seizures: One Length Of Seizures (Duration): Unknown Associated Symptoms: Bit Tongue Past Medical History Reviewed: Historical Data, Nursing Documentation, Vital Signs Vital Signs: Last Vital Signs Temp 99.2 F 11/20/17 21:01 Pulse 81 11/20/17 21:01 Resp 17 11/20/17 21:01 BP 110/51 L 11/20/17 21:01 Pulse Ox 98 11/20/17 21:01 - Medical History PMH: Asthma, Depression, Kidney Stones, Chronic Kidney Disease, Seizures - [facility] Procedures TETANUS TOXOID ADMINIST (11/24/12) Family History: States: Unknown Family Hx - Social History Hx Tobacco Use: Yes Hx Alcohol Use: Yes Hx Substance Use: No - Immunization History Hx Tetanus Toxoid Vaccination: Yes (11/24/2012) Hx Influenza Vaccination: Yes Hx Pneumococcal Vaccination: No Review Of Systems Except As Marked, All Systems Reviewed And Found Negative. Constitutional: Negative for: Other (fatigue) Eyes: Negative for: Vision Change Cardiovascular: Positive for: Light Headedness Gastrointestinal: Negative for: Nausea, Vomiting Musculoskeletal: Negative for: Neck Pain, Other (muscle spasm) Neurological: Negative for: Confusion, Headache, Dizziness Physical Exam - Physical Exam Appears: Non-toxic, No Acute Distress Skin: Normal Color, Warm, Dry Head: Atraumatic, Normacephalic Eye(s): bilateral: Normal Inspection, PERRL, EOMI Nose: Normal Oral Mucosa: Moist Tongue: Bite, Laceration Neck: Normal ROM, Supple Chest: Symmetrical, No Deformity Cardiovascular: Rhythm Regular Respiratory: Normal Breath Sounds Gastrointestinal/Abdominal: Soft, No Tenderness Back: No CVA Tenderness Extremity: Normal ROM (x4) Neurological/Psych: No Oriented x3, No Normal Speech ED Course And Treatment - Laboratory Results Result Diagrams: 11/20/17 21:30 11/20/17 21:30 O2 Sat by Pulse Oximetry: 98 (RA) Pulse Ox Interpretation: Normal Medical Decision Making Medical Decision Making: Impression: light headedness s/p seizure Plans: -- chem labs -- blood work -- Dilantin 500 mg ivpb Patient returned to baseline throughout ED course. Labs done, subtherapeutic Dilantin level noted. Loaded with Dilantin. Advised to follow up with neurology. Patient states that he still has Dilantin at home. Disposition - Disposition Disposition: HOME/ ROUTINE Disposition Time: 23:00 Condition: GOOD Additional Instructions: REGULO GARSIA JR, thank you for letting us take care of you today. Your provider was Radha Olsen MD and you were treated for SEIZURE. The emergency medical care you received today was directed at your acute symptoms. If you were prescribed any medication, please fill it and take as directed. It may take several days for your symptoms to resolve. Return to the Emergency Department if your symptoms worsen, do not improve, or if you have any other problems. Please contact your doctor or call one of the physicians/clinics you have been referred to that are listed on the Patient Visit Information form that is included in your discharge packet. Bring any paperwork you were given at discharge with you along with any medications you are taking to your follow up visit. Our treatment cannot replace ongoing medical care by a primary care provider outside of the emergency department. Thank you for allowing the [facility] team to be part of your care today. If you had an X-Ray or CT scan: A Radiologist will review the ED reading if any change in treatment is needed we will contact you. If you had a blood, urine, or wound culture: It will take several days for the results, if any change in treatment is needed we will contact you. If you had an STI test: It will take 48 hours for the results. Please call after 1 week if you have not heard back. Instructions: Seizures, Adult (DC) Forms: [facility] (Urdu), Work Excuse - Clinical Impression Clinical Impression: Seizure - Scribe Statement The provider has reviewed the documentation as recorded by the Scribe Diane Gant Provider Attestation: All medical record entries made by the Scribe were at my direction and personally dictated by me. I have reviewed the chart and agree that the record accurately reflects my personal performance of the history, physical exam, medical decision making, and the department course for this patient. I have also personally directed, reviewed, and agree with the discharge instructions and disposition.
[2017-11-20 21:37] LABS: BASO % 0.3 % (0.0-2.0); EOS # 0.1 K/uL (0.0-0.7); EOS % 0.8 % (0.0-4.0); HEMOGLOBIN 14.2 g/dL (12.0-18.0); LYMPH # 3.6 K/uL (1.0-4.3); LYMPH % 27.9 % (20.0-40.0); MEAN CELL VOLUME 88.8 fL (80.0-94.0); MEAN CORPUSCULAR HEMOGLOBIN 28.4 pg (27.0-31.0); MEAN PLATELET VOLUME 7.5 fL (7.2-11.7); MONO # 0.9 K/uL (0.0-0.8); MONO % 7.3 % (0.0-10.0); NEUT # 8.3 K/uL (1.8-7.0); NEUT % 63.7 % (50.0-75.0); RBC 5.02 Mil/uL (4.40-5.90); RED CELL DISTRIBUTION WIDTH 13.7 % (11.5-14.5)
[2017-11-20 21:49] LABS: BLOOD UREA NITROGEN 16 mg/dL (9-20); CALCIUM 9.2 mg/dl (8.6-10.4); GFR NON-AFRICAN AMERICAN > 60
[2017-11-20 22:55] VITALS: BP 110/68; PULSE 80; RESP 14; TEMP 98
== END 2017-11-20 22:54 | disposition home or self-care (01) ==
LOC: C.ER 20:47
DX: R56.9 Unspecified convulsions (principal); Z72.0 Tobacco use
CPT/HCPCS: 80048; 80185; 85025; 96374; 99284; Q2009

== ENCOUNTER 2018-01-16 10:13 | Emergency (ER) | payer SELFPAY ==
[2018-01-16 10:13] VITALS: BMI 22.7
[2018-01-16 10:25] VITALS: BP 125/74; PULSE 98; RESP 18; TEMP 98; O2SAT 100
--- NOTE | 2018-01-16 10:32 | C.PDOC ---
History Of Present Illness 32 year old male with history of several prior ED visits presents to the ED complaining of bilateral trapezius muscle pain for 3 days. 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 Denies taking any medications for the pain. Denies any fever, chills, incontinence, weakness, or numbness. Time Seen by Provider: 01/16/18 10:27 Chief Complaint (Nursing): Back Pain History Per: Patient History/Exam Limitations: no limitations Onset/Duration Of Symptoms: Days (3) Current Symptoms Are (Timing): Still Present Quality Of Discomfort: "Pain" Associated Symptoms: None Past Medical History Reviewed: Historical Data, Nursing Documentation, Vital Signs Vital Signs: Last Vital Signs Temp 98 F 01/16/18 10:23 Pulse 98 H 01/16/18 10:23 Resp 18 01/16/18 10:23 BP 125/74 01/16/18 10:23 Pulse Ox 100 01/16/18 10:23 - Medical History PMH: Asthma, Depression, Kidney Stones, Chronic Kidney Disease, Seizures Surgical History: No Surg Hx - [facility] Procedures TETANUS TOXOID ADMINIST (11/24/12) Family History: States: No Known Family Hx - Social History Hx Tobacco Use: Yes Hx Alcohol Use: Yes Hx Substance Use: No - Immunization History Hx Tetanus Toxoid Vaccination: Yes (11/24/2012) Hx Influenza Vaccination: Yes Hx Pneumococcal Vaccination: No Review Of Systems Except As Marked, All Systems Reviewed And Found Negative. Constitutional: Negative for: Fever, Chills Genitourinary: Negative for: Incontinence Musculoskeletal: Positive for: Other (bilateral trapezius pain ) Neurological: Negative for: Weakness, Numbness Physical Exam - Physical Exam Appears: Non-toxic, No Acute Distress, Other (tall, thin, muscular ) Skin: Warm, Dry, No Rash Head: Normacephalic Eye(s): bilateral: Normal Inspection Nose: Normal Oral Mucosa: Moist Cardiovascular: Rhythm Regular Respiratory: No Rales, No Rhonchi, No Wheezing Back: Paraspinal Tenderness (bilateral ), Other (bilateral lumbar spine tenderness ) Neurological/Psych: Oriented x3, Normal Speech, Normal Motor, Normal Sensation, Normal Reflexes Gait: Steady ED Course And Treatment O2 Sat by Pulse Oximetry: 100 (RA) Pulse Ox Interpretation: Normal Medical Decision Making Medical Decision Making: Plan - Ibuprofen 600mg PO - Reassess On reevaluation, patient reports feeling better. Patient requests a work note because he missed work 3 days ago. Instructed to use ice packs and take Motrin/Advil. Patient stable and ready for discharge. muscle sprain b/l trapezius, no new seizure good dilantin 300 bid compliance no injuries no radiology required. Disposition Doctor Will See Patient In The: Office Counseled Patient/Family Regarding: Studies Performed, Diagnosis - Disposition Referrals: [facility] [Outside] [facility] [Outside] [facility] [Outside] [facility] [Outside] [facility] [Outside] Disposition: HOME/ ROUTINE Disposition Time: 10:32 Condition: GOOD Additional Instructions: ice packs 1/2 hour per hour to the muscle strain areas motrin/advil 400-600 mg every 6 hours as needed no heavy lifting for 1week no hot showers. Instructions: Muscle Strain Forms: [facility] (Lithuanian), Work Excuse - Clinical Impression Clinical Impression: Thoracic back sprain - Scribe Statement The provider has reviewed the documentation as recorded by the Scribalthea Pepper All medical record entries made by the Scribe were at my direction and personally dictated by me. I have reviewed the chart and agree that the record accurately reflects my personal performance of the history, physical exam, medical decision making, and the department course for this patient. I have also personally directed, reviewed, and agree with the discharge instructions and disposition.
== END 2018-01-16 10:45 | disposition home or self-care (01) ==
LOC: C.ER 10:13
DX: S23.3XXA Sprain of ligaments of thoracic spine, initial encounter (principal); X58.XXXA Exposure to other specified factors, initial encounter; Z72.0 Tobacco use

== ENCOUNTER 2018-03-10 16:43 | Emergency (ER) | payer OTHER ==
[2018-03-10 16:44] VITALS: BMI 22.7
[2018-03-10 17:19] LABS: BASO # 0.1 K/uL (0.0-0.2); BASO % 0.5 % (0.0-2.0); EOS % 0.1 % (0.0-4.0); HEMOGLOBIN 16.5 g/dL (12.0-18.0); LYMPH % 7.6 % (20.0-40.0); MEAN CELL VOLUME 89.9 fL (80.0-94.0); MEAN CORPUSCULAR HEMOGLOBIN 28.8 pg (27.0-31.0); MONO # 0.6 K/uL (0.0-0.8); MONO % 4.5 % (0.0-10.0); NEUT # 11.7 K/uL (1.8-7.0); NEUT % 87.3 % (50.0-75.0); NRBC % 0.1 % (0.0-2.0); PLATELET COUNT 279 K/uL (130-400); RBC 5.71 Mil/uL (4.40-5.90); RED CELL DISTRIBUTION WIDTH 13.8 % (11.5-14.5); WHITE BLOOD COUNT 13.4 K/uL (4.8-10.8)
--- NOTE | 2018-03-10 17:20 | C.PDOC ---
History Of Present Illness 33yo male, with history of seizures and non-compliance with medication, brought to ER by mother for evaluation due to multiple seizures. Patient currently post- ictal and combative; no reports of tongue bite, urine/stool incontinence. No additional complaints. Time Seen by Provider: 03/10/18 17:04 Chief Complaint (Nursing): Seizure History Per: Family History/Exam Limitations: no limitations Number Of Seizures: Multiple Past Medical History Reviewed: Historical Data, Nursing Documentation, Vital Signs - Medical History PMH: Asthma, Depression, Kidney Stones, Chronic Kidney Disease, Seizures Surgical History: No Surg Hx - [facility] Procedures TETANUS TOXOID ADMINIST (11/24/12) Family History: States: Unknown Family Hx - Social History Hx Tobacco Use: Yes Hx Alcohol Use: Yes Hx Substance Use: No - Immunization History Hx Tetanus Toxoid Vaccination: Yes (11/24/2012) Hx Influenza Vaccination: Yes Hx Pneumococcal Vaccination: No Review Of Systems Except As Marked, All Systems Reviewed And Found Negative. Constitutional: Negative for: Fever, Chills Genitourinary: Negative for: Incontinence Neurological: Positive for: Seizures Physical Exam - Physical Exam Appears: Non-toxic, No Acute Distress Skin: Normal Color Head: Atraumatic, Normacephalic Eye(s): bilateral: Normal Inspection Neck: Normal ROM, Supple Chest: Symmetrical Cardiovascular: Rhythm Regular Respiratory: Normal Breath Sounds Gastrointestinal/Abdominal: Normal Exam, Soft, No Tenderness Back: Normal Inspection, No CVA Tenderness, No Vertebral Tenderness Extremity: Normal ROM, No Pedal Edema, No Deformity Neurological/Psych: Oriented x3, Normal Speech, Normal Cognition, Normal Motor, Normal Sensation ED Course And Treatment - Laboratory Results Result Diagrams: 03/10/18 17:10 03/10/18 18:02 Medical Decision Making Medical Decision Makinyo male with history of seizures and non-compliance with medication comes for eval due to multiple seizures Plan: -- Labs -- EKG -- Ativan 1mg IV -- Zofran 4mg IVP -- CT Head w/o contrast seiziure free in er pt offered observation as multiple seizures at home. he dec lines. oriented x 3. will load with dilantin. baseline leukocytosis. pt has scripts at home. emphasized importance of complianced with pt. Disposition - Disposition Referrals: Lalo Chatterjee MD [Staff Provider] - Disposition: HOME/ ROUTINE Disposition Time: 18:00 Condition: STABLE Additional Instructions: return to er with worsening symptoms or concerns. Instructions: Seizures, Adult (DC) Forms: [facility] (Khmer) - Clinical Impression Clinical Impression: Seizure - Scribe Statement The provider has reviewed the documentation as recorded by the Sai Church Provider Attestation: All medical record entries made by the Sai were at my direction and personally dictated by me. I have reviewed the chart and agree that the record accurately reflects my personal performance of the history, physical exam, medical decision making, and the department course for this patient. I have also personally directed, reviewed, and agree with the discharge instructions and disposition.
--- NOTE | 2018-03-10 17:57 | CT ---
Date of service: 03/10/2018 PROCEDURE: CT HEAD WITHOUT CONTRAST. HISTORY: seizure COMPARISON: Noncontrast head CT performed 09/27/16 TECHNIQUE: Axial computed tomography images were obtained through the head/brain without intravenous contrast. Radiation dose: Total exam DLP = 838.55 mGy-cm. This CT exam was performed using one or more of the following dose reduction techniques: Automated exposure control, adjustment of the mA and/or kV according to patient size, and/or use of iterative reconstruction technique. FINDINGS: HEMORRHAGE: No intracranial hemorrhage. BRAIN: No mass effect or edema. The luis-white matter differentiation appears intact. Please note that MRI with diffusion imaging is more sensitive in the detection of acute ischemic event. VENTRICLES: No hydrocephalus. CALVARIUM: Unremarkable. PARANASAL SINUSES: Mucosal thickening and fluid in the left maxillary sinus. Mucosal thickening ethmoid air cells. The remainder the visualized paranasal sinuses appear grossly clear. MASTOID AIR CELLS: Unremarkable as visualized. No inflammatory changes. OTHER FINDINGS: None. IMPRESSION: No acute intracranial pathology identified. Mucosal thickening and fluid, left maxillary sinus. Mucosal thickening of the ethmoid air cells. Correlate clinically for sinusitis.
[2018-03-10 18:21] LABS: ALB/GLOB RATIO 1.6 (1.0-2.1); ALBUMIN 4.7 g/dL (3.5-5.0); ALT/SGPT 23 U/L (21-72); AST/SGOT 36 U/L (17-59); BLOOD UREA NITROGEN 17 mg/dL (9-20); GFR NON-AFRICAN AMERICAN > 60
[2018-03-10 18:49] LABS: LARGE PLATELETS PRESENT; LYMPHOCYTE 2 % (20-40); MICROCYTOSIS SLIGHT; MONOCYTE 7 % (0-10); NEUTROPHIL 91 % (50-75); PLATELET ESTIMATE NORMAL (NORMAL); TOTAL CELLS COUNTED 100
[2018-03-10 19:52] VITALS: TEMP 98.3
[2018-03-10 20:48] VITALS: BP 98/50; PULSE 75; RESP 18; O2SAT 99
== END 2018-03-10 20:47 | disposition home or self-care (01) ==
LOC: C.ER 16:43
DX: R56.9 Unspecified convulsions (principal); N18.9 Chronic kidney disease, unspecified; Z72.0 Tobacco use
CPT/HCPCS: 70450; 80053; 80185; 80320; 82948; 85025; 96361; 96365; 96375; 99285; J1165; J2060; J2405

== ENCOUNTER 2018-05-01 21:58 | Emergency (ER) | payer OTHER ==
[2018-05-01 21:59] VITALS: BMI 22.7
[2018-05-01 22:34] LABS: BASO # 0.1 K/uL (0.0-0.2); BASO % 0.7 % (0.0-2.0); EOS # 0.2 K/uL (0.0-0.7); EOS % 1.1 % (0.0-4.0); HEMOGLOBIN 15.2 g/dL (12.0-18.0); LYMPH # 2.9 K/uL (1.0-4.3); LYMPH % 19.6 % (20.0-40.0); MEAN CELL VOLUME 90.6 fL (80.0-94.0); MEAN CORPUSCULAR HEMOGLOBIN 28.4 pg (27.0-31.0); MEAN CORPUSCULAR HGB CONC 31.4 g/dL (33.0-37.0); MEAN PLATELET VOLUME 7.4 fL (7.2-11.7); MONO # 1.2 K/uL (0.0-0.8); MONO % 8.3 % (0.0-10.0); NEUT # 10.5 K/uL (1.8-7.0); NEUT % 70.3 % (50.0-75.0); RBC 5.35 Mil/uL (4.40-5.90); WHITE BLOOD COUNT 14.9 K/uL (4.8-10.8)
[2018-05-01 22:49] LABS: ALB/GLOB RATIO 1.7 (1.0-2.1); ALBUMIN 5.2 g/dL (3.5-5.0); ALT/SGPT 16 U/L (21-72); AST/SGOT 58 U/L (17-59); BLOOD UREA NITROGEN 16 mg/dL (9-20); CALCIUM 9.5 mg/dl (8.6-10.4); GFR NON-AFRICAN AMERICAN > 60
[2018-05-02 00:01] VITALS: RESP 18
[2018-05-02 00:39] LABS: BARBITURATES, UR NEGATIVE (NEGATIVE); OPIATES, UR NEGATIVE (NEGATIVE); PHENCYCLIDINE, UR NEGATIVE (NEGATIVE)
[2018-05-02 00:43] LABS: BENZODIAZEPINES, UR POSITIVE (NEGATIVE)
--- NOTE | 2018-05-02 01:11 | C.PDOC ---
History Of Present Illness 33 year old male is brought to the ED by ambulance for evaluation after having a witnessed seizure prior to arrival. Patient has history of seizure disorder with noncompliance with medications. As per EMS, patient was given Versed en route and presents to the ED in post-ictal state. Additional information limited due to patient's condition. Time Seen by Provider: 05/01/18 22:13 Chief Complaint (Nursing): Seizure History Per: Patient, EMS History/Exam Limitations: other (poor historian ) Recent Seizure Activity Began: Just Before Arrival Precipitating Factor(s): Missed Dose Of Anti-seizure Medication Additional History Per: Patient, EMS Past Medical History Reviewed: Historical Data, Nursing Documentation, Vital Signs Vital Signs: Last Vital Signs Temp 97.5 F L 05/01/18 22:09 Pulse 86 05/01/18 23:40 Resp 18 05/01/18 23:40 BP 117/67 05/01/18 23:40 Pulse Ox 95 05/01/18 23:40 - Medical History PMH: Asthma, Depression, Kidney Stones, Chronic Kidney Disease, Seizures Surgical History: No Surg Hx - [facility] Procedures TETANUS TOXOID ADMINIST (11/24/12) Family History: States: Unknown Family Hx - Social History Hx Tobacco Use: Yes Hx Alcohol Use: Yes Hx Substance Use: Yes (POSSIBLY COCAINE) - Immunization History Hx Tetanus Toxoid Vaccination: Yes (11/24/2012) Hx Influenza Vaccination: Yes Hx Pneumococcal Vaccination: No Review Of Systems Neurological: Positive for: Seizures Physical Exam - Physical Exam Appears: Non-toxic, No Acute Distress Skin: Normal Color, Warm, Dry Head: Atraumatic, Normacephalic Eye(s): bilateral: Normal Inspection Teeth: No Other (bite charles ) Neck: Supple Chest: Symmetrical, No Deformity, No Tenderness Cardiovascular: Rhythm Regular, No Murmur Respiratory: Normal Breath Sounds, No Rales, No Rhonchi, No Wheezing Extremity: Normal ROM, Capillary Refill (less than 2 seconds ) Neurological/Psych: Other (arousable to touch and verbal stimuli, awake and following commands ) ED Course And Treatment - Laboratory Results Result Diagrams: 05/01/18 22:31 05/01/18 22:31 Lab Results: Total Bilirubin 0.2 mg/dL (0.2-1.3) 05/01/18 22:31 AST 58 U/L (17-59) 05/01/18 22:31 ALT 16 U/L (21-72) L D 05/01/18 22:31 Alkaline Phosphatase 85 U/L (38-126) 05/01/18 22:31 Total Protein 8.1 g/dL (6.3-8.3) 05/01/18 22:31 Albumin 5.2 g/dL (3.5-5.0) H 05/01/18 22:31 Globulin 3.0 gm/dL (2.2-3.9) 05/01/18 22:31 Albumin/Globulin Ratio 1.7 (1.0-2.1) 05/01/18 22:31 O2 Sat by Pulse Oximetry: 95 (on RA ) Pulse Ox Interpretation: Normal Medical Decision Making Medical Decision Making: Progress: Bloodwork and urinalysis ordered and reviewed. Dilantin IVP given. On reassessment, patient is resting comfortably, showing no signs of distress and has shown no seizure activity since arrival to the ED. Disposition Counseled Patient/Family Regarding: Studies Performed, Diagnosis, Need For Followup - Disposition Disposition: HOME/ ROUTINE Disposition Time: 02:09 Condition: IMPROVED Additional Instructions: REGULO GARSIA JR, thank you for letting us take care of you today. Your provider was Ruth Rivas MD and you were treated for SEIZURES. The emergency medical care you received today was directed at your acute symptoms. If you were prescribed any medication, please fill it and take as directed. Return to the Emergency Department if your symptoms worsen, do not improve, or if you have any other problems. Please contact your doctor in 1-2 days. Bring any paperwork you were given at discharge with you along with any medications you are taking to your follow up visit. Our treatment cannot replace ongoing medical care by a primary care provider outside of the emergency department. Thank you for allowing the [facility] team to be part of your care today. If you had an X-Ray or CT scan: A Radiologist will review the ED reading if any change in treatment is needed we will contact you. If you had a blood, urine, or wound culture: It will take several days for the results, if any change in treatment is needed we will contact you. If you had an STI test: It will take 48 hours for the results. Please call after 1 week if you have not heard back. Prescriptions: Phenytoin Sodium Extended 100 mg PO TID #90 capsule Instructions: Seizures, Adult (DC) Forms: [facility] (American), General Discharge Instructions - POA Present On Arrival: None - Clinical Impression Clinical Impression: Seizure, Noncompliance with medication regimen - Scribe Statement The provider has reviewed the documentation as recorded by the Scribe (Savanah Kapadia) Provider Attestation: All medical record entries made by the Scribe were at my direction and personally dictated by me. I have reviewed the chart and agree that the record accurately reflects my personal performance of the history, physical exam, medical decision making, and the department course for this patient. I have also personally directed, reviewed, and agree with the discharge instructions and disposition.
[2018-05-02] MEDS ORDERED: Sodium Chloride 0.9% 1,000 ML IV ONE (02:31)
[2018-05-02] MEDS ORDERED: Sodium Chloride 0.9% 1,000 ML ONE (02:41)
[2018-05-02 05:40] VITALS: BP 118/68; PULSE 77; TEMP 99.1; O2SAT 98
== END 2018-05-02 07:03 | disposition home or self-care (01) ==
LOC: C.ER 21:58
DX: G40.909 Epilepsy, unspecified, not intractable, without status epilepticus (principal); Z91.14 Patient's other noncompliance with medication regimen; N18.9 Chronic kidney disease, unspecified
CPT/HCPCS: 80053; 80185; 80320; 80324; 80345; 80346; 80349; 80353; 80358; 80361; 82948; 83992; 85025; 96361; 96365; 96375; 99285; J1165; J2405; J7030

== ENCOUNTER 2018-07-08 11:30 | Emergency (ER) | payer OTHER ==
[2018-07-08 11:31] VITALS: BMI 22.7
[2018-07-08 11:39] VITALS: BP 123/70; PULSE 74; RESP 18; TEMP 97.8; O2SAT 98
--- NOTE | 2018-07-08 12:02 | C.PDOC ---
History Of Present Illness 33 year old male presents to the ED complaining of itching to bilateral feet ongoing for several months. Reports it has been worsening. Denies any fever, chills, or any other complaints. Time Seen by Provider: 07/08/18 11:39 Chief Complaint (Nursing): Abnormal Skin Integrity History Per: Patient History/Exam Limitations: no limitations Onset/Duration Of Symptoms: Days Location Of Injury: Right: Foot (itching ), Left: Foot Quality Of Symptoms: Itching Past Medical History Reviewed: Historical Data, Nursing Documentation, Vital Signs Vital Signs: Last Vital Signs Temp 97.8 F 07/08/18 11:36 Pulse 74 07/08/18 11:36 Resp 18 07/08/18 11:36 BP 123/70 07/08/18 11:36 Pulse Ox 98 07/08/18 11:36 Primary Care Provider: Shaik Dodd - Medical History PMH: Asthma, Depression, Kidney Stones, Chronic Kidney Disease, Seizures Surgical History: No Surg Hx - [facility] Procedures TETANUS TOXOID ADMINIST (11/24/12) Family History: States: No Known Family Hx - Social History Hx Tobacco Use: Yes Hx Alcohol Use: Yes Hx Substance Use: No - Immunization History Hx Tetanus Toxoid Vaccination: Yes (11/24/2012) Hx Influenza Vaccination: Yes Hx Pneumococcal Vaccination: No Review Of Systems Except As Marked, All Systems Reviewed And Found Negative. Constitutional: Negative for: Fever, Chills Skin: Positive for: Other (itching to B/L feet) Physical Exam - Physical Exam Appears: Non-toxic, No Acute Distress Skin: Warm, Dry, No Rash, Other (erosion on web spaces between toes with erythema and scaling, no open wounds, no drainage ) Head: Normacephalic Neck: Supple Chest: Symmetrical Cardiovascular: Rhythm Regular, No Murmur Respiratory: Normal Breath Sounds, No Rales, No Rhonchi, No Wheezing Extremity: Normal ROM, Capillary Refill <2 Sec, No Deformity, No Swelling Extremity: Bilateral: Normal ROM Pulses: Left Dorsalis Pedis: Normal, Right Dorsalis Pedis: Normal Neurological/Psych: Oriented x3, Normal Speech Gait: Steady ED Course And Treatment O2 Sat by Pulse Oximetry: 98 (RA) Pulse Ox Interpretation: Normal Progress Note: Patient given Rx for Naftin. Instructed to follow up with PMD and Assembly Department Supervisor within 1-2 days. Return to ED if symptoms persist or worsen. Disposition - Disposition Referrals: Shashank Rios DPM [Staff Provider] - Disposition: HOME/ ROUTINE Disposition Time: 12:00 Condition: STABLE Additional Instructions: Follow up with PMD and Assembly Department Supervisor within 1-2 days. Return to ED if feel worse. Prescriptions: Naftifine HCl [Naftin] 1 appl TP DAILY #45 cream..g. Instructions: Athlete's Foot Forms: [facility] (Senegalese), Work Excuse - Clinical Impression Clinical Impression: Tinea pedis - PA / TECHNOLOGY SERVICES MANAGER / Resident Statement MD/DO has reviewed & agrees with the documentation as recorded. - Scribe Statement The provider has reviewed the documentation as recorded by the Scribe Amelie Pepper All medical record entries made by the Sai were at my direction and personally dictated by me. I have reviewed the chart and agree that the record accurately reflects my personal performance of the history, physical exam, medical decision making, and the department course for this patient. I have also personally directed, reviewed, and agree with the discharge instructions and disposition.
== END 2018-07-08 12:20 | disposition home or self-care (01) ==
LOC: C.ER 11:30
DX: B35.3 Tinea pedis (principal)